=== PATIENT | male | born 1945 | race Caucasian/White ===

== ENCOUNTER → 2017-05-22 | Outpatient (CLI) | payer MEDICARE, OTHER ==
[~2017-05-22] MED LIST: PRAVACHOL10 MG PO; PRILOSEC OTC20 MG PO
== END ==
LOC: COL.CARD 11:34
DX: R03.0 Elevated blood-pressure reading, without diagnosis of hypertension (principal)

== ENCOUNTER 2019-10-23 13:45 | Emergency (ER) | payer MEDICARE, OTHER ==
[~2019-10-23] VITALS: Ht 170.2 cm; Wt 85.5 kg
[2019-10-23 13:59] VITALS: TEMP 99.4
[2019-10-23 15:58] VITALS: BP 176/93
[2019-10-23 16:14] VITALS: PULSE 81
== END 2019-10-23 16:14 | disposition home or self-care (01) ==
LOC: COL.ER 13:45
DX: S60.222A Contusion of left hand, initial encounter (principal); G20 Parkinson's disease; I10 Essential (primary) hypertension; X58.XXXA Exposure to other specified factors, initial encounter

== ENCOUNTER 2020-10-16 15:22 | Emergency (ER) | payer MEDICARE, OTHER ==
[~2020-10-16] VITALS: Ht 170.2 cm; Wt 68.2 kg
[2020-10-16 15:35] VITALS: TEMP 98
[2020-10-16] MEDS ORDERED: SINEMET 25/101 UDTAB PO (15:50)
[2020-10-16] MEDS ORDERED: ASPIRIN E.C. 8181 MG PO (15:50)
[2020-10-16] MEDS ORDERED: PRAVACHOL 20MG20 MG PO (15:51)
[2020-10-16] MEDS ORDERED: INDERAL 20MG20 MG PO (15:51)
[2020-10-16] MEDS ORDERED: SEROQUEL 2525 MG/TAB PO (15:52)
[2020-10-16] MEDS ORDERED: NAMENDA 10MG TA10 MG PO (15:52)
[2020-10-16] MEDS ORDERED: ZOLOFT 50MG50 MG PO (15:52)
[2020-10-16] MEDS ORDERED: PRILOSEC 20MG20 MG PO (15:53)
[2020-10-16] MEDS ORDERED: FLOMAX 0.40.4 MG/CAP PO (15:53)
[2020-10-16] MEDS ORDERED: ARICEPT10 MG PO (15:54)
[2020-10-16] MEDS ORDERED: MYRBETR50MG PO (15:56)
[2020-10-16 16:56] LABS: BASO # 0.1 (0.0-0.2); BASO % 0.8 % (0.0-2.0); EOS # 0.2 (0.0-0.7); EOS % 2.5 % (0-4.0); GRAN # 6.2 (1.4-6.5); GRAN % 71.3 % (42.2-75.2); HEMATOCRIT 43.5 % (42.0-52.0); HEMOGLOBIN 14.8 g/dl (13.5-18.0); LYMPH # 1.5 (1.2-3.4); LYMPH % 17.1 % (20.0-51.0); MEAN CELL VOLUME 95 fl (80.0-100.0); MEAN CORPUSCULAR HEMOGLOBIN 32 pg (27.0-31.0); MEAN CORPUSCULAR HGB CONC 34 g/dl (33.0-37.0); MEAN PLATELET VOLUME 10.5 fl (7.4-10.4); MONO # 0.7 (0.1-0.6); MONO % 7.7 % (1.7-9.3); PLATELET COUNT 355 K/mm3 (130-400); REDCELL DISTRIBUTION WIDTH-CV 13.6 % (11.5-14.5)
[2020-10-16 17:00] LABS: ALANINE AMINOTRANSFERASE 11 U/L (4-49); ALBUMIN 4.2 gm/dL (3.5-5.0); ALKALINE PHOSPHATASE 181 U/L (50-136); ANION GAP 12 mmol/L (7-16); AST,SGOT 29 U/L (15-37); BILIRUBIN,TOTAL 1.1 mg/dL (0.0-1.0); BLOOD UREA NITROGEN 24 mg/dL (9-20); C-REACTIVE PROTEIN < 0.5 mg/dL (0.0-0.9); CALCIUM 9.5 mg/dL (8.4-10.2); CARBON DIOXIDE 21 mmol/L (22-30); CHLORIDE 106 mmol/L (98-107); CREATININE, serum 0.94 (0.66-1.25); GLUCOSE 143 mg/dL (74-106); POTASSIUM 3.5 mmol/L (3.4-5.0); SODIUM 139 mmol/L (137-145); TOTAL PROTEIN 7.3 gm/dL (6.4-8.2)
[2020-10-16 17:29] LABS: INR 1.1 (0.8-3.0); PROTHROMBIN TIME 11.9 SECONDS (9.7-12.8)
[2020-10-16] MEDS ORDERED: PLAVIX 75MG TAB75 MG PO (21:23)
[2020-10-16 21:28] VITALS: BP 154/71; PULSE 77
== END 2020-10-16 21:28 | disposition home or self-care (01) ==
LOC: COL.ER 15:22
PROVIDERS: Family Medicine
DX: G45.9 Transient cerebral ischemic attack, unspecified (principal); G20 Parkinson's disease; Z79.899 Other long term (current) drug therapy
CPT/HCPCS: Q9967

== ENCOUNTER 2021-05-30 01:24 | Inpatient (IN) | payer MEDICARE, OTHER ==
[2021-05-30] VITALS (157 sets, daily range): BP systolic 123–131; BP diastolic 72–76; PULSE 87–97; TEMP 99–99.2; O2SAT 94–100
[~2021-05-30] VITALS: Ht 170.2 cm; Wt 71.1 kg
[~2021-05-30 01:24] MED LIST changes: +ARICEPT10 MG PO; +ASPIRIN E.C. 8181 MG PO; +FLOMAX 0.40.4 MG/CAP PO; +INDERAL 20MG20 MG PO; +MYRBETR50MG PO; +NAMENDA 10MG TA10 MG PO; +PLAVIX 75MG TAB75 MG PO; +PRAVACHOL 20MG20 MG PO; +PRILOSEC 20MG20 MG PO; +SEROQUEL 2525 MG/TAB PO; +SINEMET 25/101 UDTAB PO; +ZOLOFT 50MG50 MG PO
[2021-05-30 01:36] LABS: HEMOGLOBIN 11.1 g/dl (13.5-18.0); MEAN CELL VOLUME 101 fl (80.0-100.0); MEAN CORPUSCULAR HEMOGLOBIN 31 pg (27-31); MEAN CORPUSCULAR HGB CONC 31 g/dl (33.0-37.0); MEAN PLATELET VOLUME 10.5 fl (7.4-10.4); PLATELET COUNT 542 K/mm3 (130-400); RED BLOOD COUNT 3.56 M/mm3 (4.20-5.60); REDCELL DISTRIBUTION WIDTH-CV 15.4 % (11.5-14.5)
[2021-05-30 01:38] LABS: HEMATOCRIT 36.1 % (42.0-52.0)
[2021-05-30 01:54] LABS: BAND 16 % (0-10); LYMPHOCYTE 6 % (20.0-51.0); NEUTROPHILS 68 % (42.0-75.2)
[2021-05-30 01:55] LABS: ALBUMIN 2.6 gm/dL (3.4-4.8); BILIRUBIN,TOTAL 3.5 mg/dL (0.2-1.2); CALCIUM 7.9 mg/dL (8.4-10.2); CREATININE, serum 2.7 mg/dL (0.72-1.25); POTASSIUM 5.2 mmol/L (3.5-4.5); TOTAL PROTEIN 5.9 gm/dL (6.2-8.1)
[2021-05-30 02:01] LABS: TROPONIN-I 0.033 ng/mL (0.00-0.033)
[2021-05-30 04:04] LABS: ARTERIAL BLD GAS O2 SATURATION 98.5 % (92-100); ARTERIAL BLD GAS TCO2 CT 22.8; ARTERIAL BLOOD GAS BASE EXCESS -2.6 (-2-2); ARTERIAL BLOOD GAS HCO3 21.7 meq/L (22-26); ARTERIAL BLOOD GAS PCO2 35.7 mmHg (35-45)
[2021-05-30 04:57] LABS: COLLECTION METHOD CATHETER
[2021-05-30 05:05] LABS: MUCOUS Present (NOT PRESENT); PH 5 (5-8); SQUAMOUS EPITHELIAL 0-2 /hpf (0-10); URINE APPEARANCE Cloudy (CLEAR/HAZY); URINE BACTERIA Rare /hpf (NONE SEEN); URINE BILIRUBIN Negative (NEGATIVE); URINE BLOOD 3+ (NEGATIVE); URINE COLOR Amber (YELLOW); URINE GLUCOSE Negative (NEGATIVE); URINE KETONE Negative (NEGATIVE); URINE LEUKOCYTE ESTERASE Negative (NEGATIVE); URINE NITRATE Negative (NEGATIVE); URINE PROTEIN(semi-quant) 1+ (NEGATIVE); URINE UROBILINOGEN >=4.0 (NEGATIVE)
--- NOTE | 2021-05-30 05:43 | NUR ---
Vancomycin Initial Dosing Pharmacy Note Ordering provider: LUZ ELENA Hinojosa Indication/duration: Sepsis x 7 days Relevant comorbidities: N/A LABS: WBC = 17.8, SCr = 2.7 Recommendation: Will draw troughs and follow levels. Loading dose: 1 gram Maintenance dose: 750 mg every 24 hours Trough goal: 15-20 ug/mL
[2021-05-30] MEDS ORDERED: PROTONIX20 MG PO (06:17)
[2021-05-30] MEDS ORDERED: NAMENDA 10MG TA10 MG PO (06:17)
[2021-05-30] MEDS ORDERED: INDERAL 20MG20 MG PO (06:18)
[2021-05-30] MEDS ORDERED: ZOLOFT 50MG50 MG PO (06:18)
[2021-05-30] MEDS ORDERED: SEROQUEL 2525 MG/TAB PO (06:19)
[2021-05-30] MEDS ORDERED: SINEMET 25/101 UDTAB PO (06:19)
[2021-05-30] MEDS ORDERED: FLOMAX 0.40.4 MG/CAP PO (06:20)
[2021-05-30 06:21] LABS: C-REACTIVE PROTEIN 25.91 mg/dL (0.00-0.50)
[2021-05-30] MEDS ORDERED: VESICARE10 MG PO (06:21)
[2021-05-30] MEDS ORDERED: PRAVACHOL 20MG20 MG PO (06:21)
[2021-05-30] MEDS ORDERED: ARICEPT10 MG PO (06:21)
[2021-05-30] MEDS ORDERED: PLAVIX 75MG TAB75 MG PO (06:22)
[2021-05-30] MEDS ORDERED: TRIAMCINOLONE A15 G3 TP (06:23)
[2021-05-30] MEDS ORDERED: ATIVAN 0.50.5 MG/TAB PO (06:23)
[2021-05-30 07:24] LABS: INR 1.4 (0.8-3.0); PROTHROMBIN TIME 15.2 SECONDS (9.7-12.8)
[2021-05-30 07:28] LABS: CALCIUM 7.8 mg/dL (8.4-10.2); CREATININE, serum 2.28 mg/dL (0.72-1.25); POTASSIUM 4.4 mmol/L (3.5-4.5)
[2021-05-30 09:34] LABS: HEMOGLOBIN 10.7 g/dl (13.5-18.0)
[2021-05-30 09:35] LABS: HEMATOCRIT 34.3 % (42.0-52.0)
[2021-05-30 14:39] LABS: ARTERIAL BLD GAS O2 SATURATION 92.2 % (92-100); ARTERIAL BLD GAS TCO2 CT 21.4; ARTERIAL BLOOD GAS BASE EXCESS -1.5 (-2-2); ARTERIAL BLOOD GAS HCO3 20.6 meq/L (22-26); ARTERIAL BLOOD GAS PO2 61.9 mmHg (80-100)
--- NOTE | 2021-05-30 19:45 | NUR ---
PT ADMITTED FROM ED WITH SEPSIS. PT IS NON VERBAL AT BASELINE. PT TRANSFERED TO BED. PT'S VSS. PT IS ON AIRVO SATING 96%. PT ON IVF THRU LEFT SUBCLAVIAN CENTRAL LINE. PT HAS [facility] CATH IN PLACE. WILL CONTINUE TO [facility].
[2021-05-31] VITALS (593 sets, daily range): BP systolic 109–131; BP diastolic 47–81; PULSE 91–99; TEMP 98–100.2; O2SAT 67–100
[2021-05-31 04:02] LABS: MEAN CELL VOLUME 97 fl (80.0-100.0); MEAN CORPUSCULAR HGB CONC 32 g/dl (33.0-37.0); MEAN PLATELET VOLUME 10.8 fl (7.4-10.4); RED BLOOD COUNT 2.82 M/mm3 (4.20-5.60); REDCELL DISTRIBUTION WIDTH-CV 15.6 % (11.5-14.5)
[2021-05-31 04:24] LABS: ALBUMIN 1.9 gm/dL (3.4-4.8); BILIRUBIN,TOTAL 2.3 mg/dL (0.2-1.2); CALCIUM 7.1 mg/dL (8.4-10.2); CREATININE, serum 1.54 mg/dL (0.72-1.25); POTASSIUM 3.3 mmol/L (3.5-4.5); TOTAL PROTEIN 4.8 gm/dL (6.2-8.1)
[2021-05-31 04:54] LABS: HEMATOCRIT 27.4 % (42.0-52.0); HEMOGLOBIN 8.7 g/dl (13.5-18.0); MEAN CORPUSCULAR HEMOGLOBIN 31 pg (27-31)
[2021-05-31 04:55] LABS: PLATELET COUNT 371 K/mm3 (130-400)
[2021-05-31 05:18] LABS: BAND 15 % (0-10); HYPOCHROMIA 2+; LYMPHOCYTE 4 % (20.0-51.0); NEUTROPHILS 74 % (42.0-75.2); PLATELET ESTIMATE NORMAL (NORMAL)
[2021-05-31 05:19] LABS: ANISOCYTOSIS 1+
[2021-05-31 05:20] LABS: BURR CELLS 1+; TARGET CELLS 1+
[2021-05-31 06:49] LABS: ARTERIAL BLD GAS O2 SATURATION 92.5 % (92-100); ARTERIAL BLD GAS TCO2 CT 23.6; ARTERIAL BLOOD GAS BASE EXCESS -0.5 (-2-2); ARTERIAL BLOOD GAS HCO3 22.6 meq/L (22-26); ARTERIAL BLOOD GAS PCO2 31.2 mmHg (35-45); ARTERIAL BLOOD GAS PO2 65.4 mmHg (80-100); ARTERIAL BLOOD GAS pH 7.48 (7.35-7.45)
--- NOTE | 2021-05-31 07:00 | NUR ---
RECEIVED REPORT FROM ANSON FLORES. PT SLEEPING ON AIRVO 40L 40%. VSS. CALL LIGHT WITHIN REACH. IVF INFUSING.
--- NOTE | 2021-05-31 11:05 | NUR ---
PT TO NUC MED AT 1001, BACK AT 1105. PT WENT ON 5L OM. PLACED BACK ON CONTINUOUS MONITOR. VSS. PT LEFT ON 5L OM. CALL LIGHT WITHIN REACH. FC PATENT AND DRAINING TO GRAVITY.
--- NOTE | 2021-05-31 13:05 | NUR ---
NGT TO RT NARE PLACED AT THIS TIME AT 72 CM CLAMPED UNTIL XRAY VERIFICATION THEN WILL START FREE WATER FLUSHES.
--- NOTE | 2021-05-31 15:07 | NUR ---
PER XRAY, NGT PULLED BACK TO 67 CM. FREE WATER FLUSHES REGIMEN STARTED AT THIS TIME.
--- NOTE | 2021-05-31 18:39 | NUR ---
REPORT GIVEN TO ANSON ESPINOZA ON MEDICAL. PT TO TRANSFER VIA BED ON 5L OM TO 353. ALL PERSONAL BELONGINGS SENT WITH PT. BENITEZ ACCOMPANYING PT DURING TRANSFER.
[2021-05-31 19:50] LABS: CALCIUM 7.2 mg/dL (8.4-10.2); CREATININE, serum 1.23 mg/dL (0.72-1.25); POTASSIUM 3.7 mmol/L (3.5-4.5)
--- NOTE | 2021-05-31 20:30 | NUR ---
Initial shift assessment done- pt not responding to voice, does not open eyes, will pull away with pain, NG tube in place- getting 250cc water flushes every 4 hours,, Tele on, Dupont to DD with juanita urine, o2 5L/OM, sats 95%, TLC to left chest-dsg dry and intact.
[2021-06-01] VITALS (11 sets, daily range): BP systolic 117–139; BP diastolic 59–81; PULSE 62–106; TEMP 98.9–100.2
--- NOTE | 2021-06-01 01:00 | NUR ---
Temp 99.0 ax, flushed, will give Tylenol suppository at this time-
--- NOTE | 2021-06-01 05:59 | NUR ---
Did give Tylenol suppository again at 0500 , temp 99.4, NG with 250cc water flushes every 4 hours , 2100, 0100 and 0500.
[2021-06-01 06:41] LABS: MEAN CELL VOLUME 98 fl (80.0-100.0); MEAN CORPUSCULAR HGB CONC 32 g/dl (33.0-37.0); PLATELET COUNT 386 K/mm3 (130-400); REDCELL DISTRIBUTION WIDTH-CV 15.8 % (11.5-14.5)
[2021-06-01 06:52] LABS: HEMATOCRIT 26.5 % (42.0-52.0); HEMOGLOBIN 8.4 g/dl (13.5-18.0); MEAN CORPUSCULAR HEMOGLOBIN 31 pg (27-31)
[2021-06-01 07:03] LABS: CALCIUM 7.3 mg/dL (8.4-10.2); CREATININE, serum 1.23 mg/dL (0.72-1.25); MAGNESIUM 2.3 mg/dL (1.6-2.6); POTASSIUM 3.6 mmol/L (3.5-4.5)
[2021-06-01 08:05] LABS: BAND 21 % (0-10); LYMPHOCYTE 2 % (20.0-51.0); NEUTROPHILS 75 % (42.0-75.2); PLATELET ESTIMATE NORMAL (NORMAL)
--- NOTE | 2021-06-01 14:45 | NUR ---
Patient arrived back from [facility] s/p MAGALY, vital signs stable, NG was removed during procedure, 14F. reinstered to left nare and X-ray ordered for placement confirmation, significant other updated on plan of care
--- NOTE | 2021-06-01 14:58 | NUR ---
Patient is nonverbal at baseline. Attempt made to contact Herber, the patient's DPOA-HC/guardian and was unsuccessful. Message left for Herber.
--- NOTE | 2021-06-01 15:15 | NUR ---
pressroom worker spoke with patient's DPOA-HC/Guardian to complete intake. nishi states that up until about a week ago, that patient was mostly independent with his ADL's and that during this past week, he has purchased the patient a walker, wheelchair and gait belt. Patient does not have any oxygen needs at home. PCP is Dr. Carlos and he utilizes [facility] for perscriptions. Patient has a DPOA-HC established and a copy of it can be found in the patient's EMR. Herber confirms that he has not hired 24 care givers for this patient and that it is something that he is looking into. Informed him that i have a list that i can provide to him and that we can establish HH for PT/OT upon discharge. Patient had a remote encoding operations supervisor service set up through [facility], but as his needs progressed, Herber discontinued it. Herber is very strongly against the patient going to a [place] [facility] [place] facility for any kind of care and will do anything to keep the patient at home. Discharge plan: Home with HH and 24hr care
--- NOTE | 2021-06-01 16:19 | NUR ---
Herber arrives to the hospital. Spoke with him and educated him on the difference between private duty caregivers, home health and SNF. After learning the difference, Herber is open to the patient going to [facility] SNF if it is for a short time. Goal would be to get the patient back home. Will wait to see what PT/OT recommends. Discharge plan: Possible SNF ([facility])
--- NOTE | 2021-06-01 16:37 | NUR ---
Continues to do well post MAGALY, vital signs remain stable
[2021-06-01 19:49] LABS: CALCIUM 7.3 mg/dL (8.4-10.2); CREATININE, serum 1.16 mg/dL (0.72-1.25); POTASSIUM 3.9 mmol/L (3.5-4.5)
--- NOTE | 2021-06-01 22:58 | NUR ---
Patient assessed around 2129. No outward s/sx of pain or discomfort noted, such as facial grimacing and moaning. TLC to left subclavian. Peripheral INT to RAC and LAC. On oxygen at 5 L/min via oxymask. LS CTA in upper lobes, diminished in lower. HRR. Capillary refill less than 3 seconds. Non-tenting skin turgor. BSAx4. NG tube at 67 cm jessica. Given 350 ml water flush per order. Indwelling de santiago catheter patent, and draining clear juanita urine via dependent drainage. Bruising/abrasions/scabs all over. In bed with call light within reach. Bed alarm on.
[2021-06-02 00:50] VITALS: BP 122/73; PULSE 95; TEMP 98.5
[2021-06-02 04:29] VITALS: BP 145/88; PULSE 99; TEMP 98.4
--- NOTE | 2021-06-02 05:22 | NUR ---
Patient has received 350 ml water flushes through NG tube per orders. No outward s/sx of pain or discomfort noted at this time, such as facial grimacing and moaning. In bed with call light within reach. Bed alarm on.
[2021-06-02 06:34] LABS: MEAN CELL VOLUME 102 fl (80.0-100.0); MEAN CORPUSCULAR HGB CONC 31 g/dl (33.0-37.0); PLATELET COUNT 364 K/mm3 (130-400); RED BLOOD COUNT 2.65 M/mm3 (4.20-5.60); REDCELL DISTRIBUTION WIDTH-CV 15.9 % (11.5-14.5)
[2021-06-02 06:48] LABS: HEMOGLOBIN 8.3 g/dl (13.5-18.0); MEAN CORPUSCULAR HEMOGLOBIN 31 pg (27-31)
[2021-06-02 06:55] LABS: CALCIUM 7.5 mg/dL (8.4-10.2); CREATININE, serum 0.97 mg/dL (0.72-1.25); POTASSIUM 3.7 mmol/L (3.5-4.5)
[2021-06-02 07:48] VITALS: BP 131/69; PULSE 103; TEMP 100.7
[2021-06-02 08:22] LABS: BAND 13 % (0-10); LYMPHOCYTE 7 % (20.0-51.0); NEUTROPHILS 78 % (42.0-75.2); PLATELET ESTIMATE NORMAL (NORMAL)
--- NOTE | 2021-06-02 09:35 | NUR ---
Several visit attempts; Patient's nurse with him. Hot Car Charger left card offering God's blessings and information regarding the availability of spiritual care at our hospital.
[2021-06-02 11:52] VITALS: BP 123/76; PULSE 95; TEMP 95.5
--- NOTE | 2021-06-02 14:41 | NUR ---
HUEY faxed updates to Porfirio at [facility]. Awaiting screen.
[2021-06-02 16:32] VITALS: BP 130/74; PULSE 99; TEMP 98.3
[2021-06-02 17:13] LABS: CALCIUM 7.5 mg/dL (8.4-10.2); CREATININE, serum 0.95 mg/dL (0.72-1.25); POTASSIUM 4.1 mmol/L (3.5-4.5)
--- NOTE | 2021-06-02 18:44 | NUR ---
PT ONLY RESPONDING TO PAIN MOST OF SHIFT. PT HAD ABOUT AN HOUR OF ALERTNESS WITH EYES OPEN AND EYES TRACKED TO MY VOICE. PT DOES NOT MAKE VOLUNTARY MOVEMENTS OR FOLLOWS COMMANDS. NG TUBE WAS FOUND COILED IN BACK OF MOUTH THIS MORNING AND WAS PULLED. NG VS DOBHOFF WAS DISCUSSED AND WAS DECIDED TO ATTEMPT NG. PT NOT ABLE TO SWALLOW ON COMMAND, MAKING IT DIFFICULT TO PLACE NG. ATTEMPTED ONCE BY ELECTRO TECH AND CHEST XR CONFIRMED IT HAD COILED IN ESOPHAGUS. THIS RN ATTEMPTED A SECOND TIME AND CHEST XR IS PENDING.
[2021-06-02 20:10] VITALS: BP 152/74; PULSE 106; TEMP 98.5
--- NOTE | 2021-06-02 22:00 | NUR ---
Patient is resting in bed, sleeping. He opens his eyes whit movement. He does not follow comands. Telemetry in place, NSR, D5W running at 50ml/hr. Dupont in place with yellow output. NG tube in place. Assessment completed. Hygiene, change of linens and gown provided. No further needs at this time. Bed alarm on.
[2021-06-03 00:29] VITALS: BP 146/78; PULSE 102; TEMP 98.9
[2021-06-03 04:24] VITALS: BP 145/71; PULSE 94; TEMP 97.6
--- NOTE | 2021-06-03 06:13 | NUR ---
Pt was sleeping most of the night. Receiving D5W at 50 ml/hr. No other issues along the night. Shift teport will be given to day RN.
[2021-06-03 06:42] LABS: MEAN CELL VOLUME 101 fl (80.0-100.0); MEAN CORPUSCULAR HGB CONC 31 g/dl (33.0-37.0); MEAN PLATELET VOLUME 11.1 fl (7.4-10.4); PLATELET COUNT 342 K/mm3 (130-400); RED BLOOD COUNT 2.62 M/mm3 (4.20-5.60)
[2021-06-03 07:05] LABS: ALBUMIN 1.6 gm/dL (3.4-4.8); CALCIUM 7.5 mg/dL (8.4-10.2); CREATININE, serum 1.03 mg/dL (0.72-1.25); POTASSIUM 3.9 mmol/L (3.5-4.5); TOTAL PROTEIN 4.6 gm/dL (6.2-8.1)
[2021-06-03 07:14] LABS: HEMATOCRIT 26.5 % (42.0-52.0); HEMOGLOBIN 8.1 g/dl (13.5-18.0); MEAN CORPUSCULAR HEMOGLOBIN 31 pg (27-31)
[2021-06-03 07:15] LABS: BILIRUBIN,TOTAL 0.7 mg/dL (0.2-1.2)
[2021-06-03 08:23] VITALS: BP 151/71; PULSE 95; TEMP 99.1
[2021-06-03 08:31] LABS: BAND 6 % (0-10); EOSINOPHIL 4 % (0-4); LYMPHOCYTE 6 % (20.0-51.0); NEUTROPHILS 80 % (42.0-75.2)
[2021-06-03 08:32] LABS: PLATELET ESTIMATE NORMAL (NORMAL)
[2021-06-03 08:34] LABS: ANISOCYTOSIS 1+; HYPOCHROMIA 3+
--- NOTE | 2021-06-03 11:53 | NUR ---
Visited with patient's partner Herber at bedside with HUEY Maldonado after Herber was able to discuss treatment options with Dr. Caputo. Herber stated he isn't ready to lose David yet but they also never talked about how far David would want his care to go. Herber would like to try a thoracentesis to see if it gives David any relief or improvement and then discuss any plans moving forward after we see how he tolerates that. Provided my contact information if any questions should arise. Herber also stated that aDvid's daughter would be the visitor the next couple days as she is driving down from [place] but that he would be available per phone if needed.
[2021-06-03 12:07] VITALS: BP 147/83; PULSE 96
[2021-06-03 12:27] LABS: INR 1.4 (0.8-3.0); PROTHROMBIN TIME 15.3 SECONDS (9.7-12.8)
--- NOTE | 2021-06-03 15:05 | NUR ---
dry yard worker attended rounding with physician staff, and it was decided a goals of care meeting needed to take place. Phone call made to the patient's partner for him to come up to the hospital and speak with the physician. Herber arrives to the unit. Physician, palliative care RN Koki and myself speak with Herber on the patients condition. Herber is provided education on the patients condition and questions answered. Koki speaks to Herber more in depth about the difference on palliative care vs. hospice. Yaw questions answered. Herber decides he would like to do a thoracentesis before deciding on a chest tube. Hospitalist informed and order placed.
[2021-06-03 16:00] VITALS: BP 155/74; PULSE 102; TEMP 98.3
[2021-06-03 16:43] LABS: PLEURAL FLUID RBC 2000 /mm3 (0-0); PLEURAL FLUID WBC 1141 /mm3
[2021-06-03 16:50] LABS: PLEURAL FLUID APPEARANCE CLOUDY; PLEURAL FLUID COLOR YELLOW
--- NOTE | 2021-06-03 19:30 | NUR ---
Patient is sleeping in bed, receiving a dose of antibiotics and D5W at100 ml/hr. NG tube in place,. Oxymask with 5L O2. Telemetry in place. SCDs working. Assessment completed, no further needs at this time. Bed alarm on.
[2021-06-03 19:42] VITALS: BP 149/77; PULSE 96; TEMP 98.6
--- NOTE | 2021-06-03 23:20 | NUR ---
Received call from Herber wanted to say pt's daughter, Ann Paez, will come tomorroe at around 9:30 am.
[2021-06-04 00:43] VITALS: BP 154/71; PULSE 87; TEMP 98.9
[2021-06-04 04:05] VITALS: BP 146/69; PULSE 88; TEMP 98.4
[2021-06-04 05:52] LABS: MEAN CELL VOLUME 98 fl (80.0-100.0); MEAN CORPUSCULAR HGB CONC 31 g/dl (33.0-37.0); MEAN PLATELET VOLUME 10.6 fl (7.4-10.4); PLATELET COUNT 329 K/mm3 (130-400); RED BLOOD COUNT 2.53 M/mm3 (4.20-5.60); REDCELL DISTRIBUTION WIDTH-CV 15.8 % (11.5-14.5)
[2021-06-04 06:06] LABS: CALCIUM 8.2 mg/dL (8.4-10.2); CREATININE, serum 1.25 mg/dL (0.72-1.25); POTASSIUM 4.8 mmol/L (3.5-4.5)
[2021-06-04 06:13] LABS: HEMATOCRIT 24.9 % (42.0-52.0); HEMOGLOBIN 7.7 g/dl (13.5-18.0); MEAN CORPUSCULAR HEMOGLOBIN 30 pg (27-31)
--- NOTE | 2021-06-04 06:31 | NUR ---
Pt has had a calm night. He had a BM, linens, gown and hygiene provided. NG in place. Still with 5 L Oxymask. Report will be given to day RN.
[2021-06-04 07:30] LABS: BAND 4 % (0-10); EOSINOPHIL 3 % (0-4); LYMPHOCYTE 5 % (20.0-51.0); METAMYELOCYTE 1 % (0-0); NEUTROPHILS 83 % (42.0-75.2); PLATELET ESTIMATE NORMAL (NORMAL)
[2021-06-04 07:31] LABS: POLYCHROMASIA 1+
[2021-06-04 08:04] VITALS: BP 154/72; PULSE 92; TEMP 98.3
--- NOTE | 2021-06-04 08:59 | NUR ---
Shift assessment complete. Pt lying in bed, alert but unable to respond verbally or follow commands. Oxymask on at 4 lpm O2. NG tube in place. Left subclavian TLC in place, all ports flush easily w/good blood return. Pt w/labored shallow breathing, lungs clear to auscultation and O2 sats stable. Continuing to monitor. Bed alarm on.
[2021-06-04 09:57] LABS: ARTERIAL BLD GAS O2 SATURATION 94.9 % (92-100); ARTERIAL BLOOD GAS BASE EXCESS -3.2 (-2-2); ARTERIAL BLOOD GAS HCO3 20.1 meq/L (22-26); ARTERIAL BLOOD GAS PCO2 30.2 mmHg (35-45); ARTERIAL BLOOD GAS PO2 73.5 mmHg (80-100); ARTERIAL BLOOD GAS pH 7.44 (7.35-7.45)
--- NOTE | 2021-06-04 10:00 | NUR ---
This RN attempted to do pt's 1000 NG flush. 10 cc residual. Able to flush about 100 cc's before NG occluded and would no longer flush. Unable to get it to flush again. Notified Jeannie LAGUNA. CXR to confirm placement ordered and free water flushes D/C'd.
[2021-06-04 11:41] VITALS: BP 136/64; PULSE 94; TEMP 98.8
--- NOTE | 2021-06-04 11:54 | NUR ---
NG tube removed per orders. Pt tolerated well. Tip of catheter intact but full of clotted blood.
--- NOTE | 2021-06-04 12:10 | NUR ---
Met with daughter at bedside, she is very realistic about patient's prognosis but enforces that Herber is the DPOA and care moving forward is his choice. Call made to Herber and he stated that he and the patient's daughter talked and understand that comfort care is recommended. Received permission for Herber as well. Once he arrives we will finalize comfort care decision and discuss home hospice options and timing for discharge. Notified Dr. Caputo, HUEY, and primary RN of discussions.
--- NOTE | 2021-06-04 14:44 | NUR ---
Herber decided comfort care is appropriate and referral sent to [facility]. We are hoping for discharge back home tonight if a bed can be delivered for the patient. I will update the care team as soon as that has been decided.
[2021-06-04] MEDS ORDERED: TRANSDERM-0.5 MG/21 TD (15:00)
[2021-06-04] MEDS ORDERED: TYLENOL SU650 MG/SUP RC (15:02)
[2021-06-04] MEDS ORDERED: ZOFRAN ODT4 MG PO (15:03)
[2021-06-04] MEDS ORDERED: LORAINT PO (15:06)
[2021-06-04] MEDS ORDERED: ROXANOL 20MG20 MG/ML PO (15:06)
--- NOTE | 2021-06-04 16:30 | NUR ---
Family meetling help today with the patient's daughter Herber Juarez, and LINDA Telles. Family decided to place the patient on comfort care. Family would like to take the patient home with [facility]. Miguel from [facility] visits this family. DPOA- provided to Miguel. All questions answered to the family. [facility] contacted and arrangement made for a 6pm burr picker for transport. Discharge plan: Home with [facility].
--- NOTE | 2021-06-04 17:03 | NUR ---
Left subclavian triple lumen catheter removed. Pt tolerated well. Pressure held to site for 5 minutes and site covered w/gauze and tegaderm. Pt's family instructed to keep dressing dry and in place for 24 hours and educated on possible complications.
--- NOTE | 2021-06-04 17:17 | NUR ---
Report called to hospice nurse Jaquelin and all questions answered.
--- NOTE | 2021-06-04 18:29 | NUR ---
Discharge instructions discussed w/pt's daughter and all questions answered. Assisted EMS in transferring pt to stretcher.
== END 2021-06-04 18:25 | disposition hospice, home (50) | DRG 871 ==
LOC: COL.ER 01:24 → ICU 03:36 → MEDICAL 05-31 19:27
PROVIDERS: Internal Medicine Pulmonary Disease; Physician Assistant; Student in an Organized Health Care Education/Training Program; ADMIT Internal Medicine
PROC: 0W993ZZ Drainage of Right Pleural Cavity, Percutaneous Approach (ICD-10-PCS; principal; 2021-06-03)
DX: A41.01 Sepsis due to Methicillin susceptible Staphylococcus aureus (principal); J96.01 Acute respiratory failure with hypoxia; R65.21 Severe sepsis with septic shock; J96.02 Acute respiratory failure with hypercapnia; J15.211 Pneumonia due to Methicillin susceptible Staphylococcus aureus; S22.43XA Multiple fractures of ribs, bilateral, initial encounter for closed fracture; N17.9 Acute kidney failure, unspecified; E87.0 Hyperosmolality and hypernatremia; E87.2 Acidosis; G93.40 Encephalopathy, unspecified; J90 Pleural effusion, not elsewhere classified; J94.2 Hemothorax; Z66 Do not resuscitate; G20 Parkinson's disease; F02.80 Dementia in other diseases classified elsewhere, unspecified severity, without behavioral disturbance, psychotic disturbance, mood disturbance, and anxiety; E87.5 Hyperkalemia; I10 Essential (primary) hypertension; E87.6 Hypokalemia; D64.9 Anemia, unspecified; Z20.822 Contact with and (suspected) exposure to COVID-19; Z79.82 Long term (current) use of aspirin; Z51.5 Encounter for palliative care; Z23 Encounter for immunization
CPT/HCPCS: 99223-AI; 99233-AI; 99239; A9540; A9567; J0610; J0690; J1644; J1815; J2270; J2543; J2704; J3370; J3480; J7030; J7050; J7060; J7070; J7120